=== PATIENT | male | born 1955 ===

== ENCOUNTER 2018-10-01 09:10 | Emergency (ER) | payer BC, OTHER ==
[2018-10-01 09:34] VITALS: PULSE 72; RESP 18; TEMP 97.4; O2SAT 99
[2018-10-01 10:43] VITALS: BP 161/102
== END 2018-10-01 10:15 | disposition home or self-care (01) ==
LOC: ED 09:10
DX: J06.9 Acute upper respiratory infection, unspecified (principal)
CPT/HCPCS: 87430; 99282

== ENCOUNTER 2018-11-24 09:06 | Day surgery (SDC) | payer OTHER ==
[~2018-11-24 09:06] MED LIST: LIDOCAINE HCL 1% MPF 30 SOL ONE; PROPOFOL 500 MG/50 ML EMU IV ONE
[2018-11-24 10:46] VITALS: TEMP 98.2
[2018-11-24 11:07] VITALS: BP 118/99; PULSE 72; RESP 16; O2SAT 99
== END 2018-11-24 11:23 | disposition home or self-care (01) ==
LOC: SURG 09:06
PROVIDERS: ATTEND Surgery
DX: Z12.11 Encounter for screening for malignant neoplasm of colon (principal); K63.5 Polyp of colon
CPT/HCPCS: 99001; J2001; J2704